=== PATIENT | female | born 1970 | race Caucasian/White ===

== ENCOUNTER 2017-01-14 12:55 | Emergency (ER) | payer MEDICAID ==
[~2017-01-14] VITALS: Ht 157.5 cm; Wt 90.0 kg
[~2017-01-14 12:55] MED LIST: CEPH-443 PO; FAMO-18 PO; HYDR-3498 PO
[2017-01-14 12:58] VITALS: Ht 157.5 cm; Wt 90.0 kg
[2017-01-14] MEDS ORDERED: DICLOFENAC SODIUM 37.5 MG/ML VIAL IV STA (13:12)
[2017-01-14] MEDS ORDERED: ONDANSETRON 4 MG INJ IV STA (13:12)
[2017-01-14 13:54] LABS: ADD UMIC YES; URINE BILIRUBIN (Dip) NEGATIVE (NEGATIVE); URINE BLOOD (Dip) TRACE (NEGATIVE); URINE COLOR LT. YELLOW (YELLOW); URINE GLUCOSE (Dip) NEGATIVE (NEGATIVE); URINE KETONES (Dip) NEGATIVE (NEGATIVE); URINE LEUKOCYTE ESTERASE (Dip) NEGATIVE (NEGATIVE); URINE NITRITE (Dip) NEGATIVE (NEGATIVE); URINE TOTAL PROTEIN (Dip) NEGATIVE (NEGATIVE); URINE UROBILINOGEN (Dip) 0.2 E.U./dL (0.1-1.0)
[2017-01-14] MEDS ORDERED: ONDANSETRON (ODT) 4 MG TAB ODT STA (13:54)
[2017-01-14] MEDS ORDERED: LIDOCAINE/MYLANTA 40 ML BTL PO ONE (14:00)
[2017-01-14 14:16] LABS: BACTERIA,URINE FEW
[2017-01-14 14:34] LABS: ADD SCAN DIFF NO
[2017-01-14 14:38] LABS: BASOPHILS % 0.4 % (0.0-2.0); EOSINOPHILS # 0.2 10^3/ul (0.0-0.5); EOSINOPHILS % 2.4 % (0.0-7.0); HEMATOCRIT 39.5 % (37.0-47.0); HEMOGLOBIN 12.9 g/dl (12.0-16.0); LYMPHOCYTES % 27.1 % (15.0-51.0); MEAN CORPUSCULAR HEMOGLOBIN 30.5 pg (29.0-33.0); MEAN CORPUSCULAR HGB CONC 32.7 g/dl (32.0-37.0); MEAN CORPUSCULAR VOLUME 93.4 fl (82.0-101.0); MONOCYTE # 0.5 10^3/ul (0.3-0.9); MONOCYTES % 6.7 % (0.0-11.0); NEUTROPHIL # 4.6 10^3/ul (1.6-7.5); RED BLOOD COUNT 4.23 10^6/ul (4.20-5.40); RED CELL DISTRIBUTION WIDTH 13.2 % (11.5-14.5); WHITE BLOOD COUNT 7.4 10^3/ul (4.8-10.8)
[2017-01-14 14:44] LABS: MEAN PLATELET VOLUME 10.4 fl (7.4-10.4)
[2017-01-14 14:54] LABS: ALBUMIN 4.1 g/dl (3.3-4.9)
[2017-01-14 14:55] LABS: POTASSIUM 4.1 mmol/L (3.5-5.1)
[2017-01-14 14:57] LABS: ALBUMIN/GLOBULIN RATIO 1.2; BILIRUBIN,INDIRECT 0.2 mg/dl (0-1.1); BILIRUBIN,TOTAL 0.2 mg/dl (0.2-1.3); CREATININE 0.51 mg/dl (0.44-1.00); PLATELET COUNT 275 10^3/UL (140-415); TOTAL PROTEIN 7.5 g/dl (6.1-8.1)
[2017-01-14 14:58] LABS: CALCIUM 9.3 mg/dl (8.4-10.2)
[2017-01-14] MEDS ORDERED: FAMO-18 PO (15:12)
[2017-01-14] MEDS ORDERED: ONDA8TAB14 PO (15:12)
[2017-01-14] MEDS ORDERED: ACET1TAB40 PO (15:13)
--- NOTE | 2017-02-11 10:15 | ERD ---
ER Documentation Chief Complaint Date/Time DATE of dictation: 02/11/17 TIME: 10:13 Date of service 01/14/2017 Chief Complaint AP WITH NAUSEA SINCE TUESDAY HPI 46-year-old female presents with epigastric abdominal pain and nausea last few days. She denies fevers, lower abdominal pain, urinary complaints, cough, shortness breath or chest pain. ROS All systems reviewed and are negative except as per history of present illness. Medications Home Meds Active Scripts Acetaminophen with Codeine (Acetaminophen-Cod #3 Tablet) 1 Each Tablet, 1 TAB PO Q6H Y for PAIN, #15 TAB Prov:TYREL SMITH MD 01/14/17 Famotidine* (Pepcid*) 20 Mg Tablet, 20 MG PO BID for 4 Days, #30 TAB Prov:TYREL SMITH MD 01/14/17 Ondansetron (Ondansetron Odt) 8 Mg Tab.rapdis, 8 MG PO Q6H Y for NAUSEA AND/OR VOMITING, #10 TAB Prov:TYREL SMITH MD 01/14/17 Famotidine* (Pepcid*) 20 Mg Tablet, 20 MG PO BID, #30 TAB Prov:MITCHELL YANES PA-C 05/24/16 Cephalexin* (Keflex*) 500 Mg Capsule, 500 MG PO TID for 3 Days, CAP Prov:ALAINA CHAVEZ MD 03/23/16 Hydrocodone Bit-Acetaminophen* (Donalds*) 5-325 Mg Tab, 1 TAB PO Q6 Y for PAIN, # 7 TAB Prov:NELY MORA PA-C 03/18/16 Allergies Allergies: Coded Allergies: No Known Allergy (Unverified , 05/24/16) PMhx/Soc History of Surgery: Yes (colostomy, and reversed colostomy & tracheostomy, , doron) Anesthesia Reaction: No Hx Neurological Disorder: No Hx Respiratory Disorders: No Hx Cardiac Disorders: No Hx Psychiatric Problems: No Hx Miscellaneous Medical Probl: No Hx Alcohol Use: Yes (6 BEERS 3X/WEEKEND) Hx Substance Use: No Hx Tobacco Use: Yes (6CIGS/DAY) Smoking Status: Current every day smoker Physical Exam Physical Exam Const: [] Alert, [id number]. Head: Atraumatic Eyes: Normal Conjunctiva ENT: Normal External Ears, Nose and Mouth. Neck: Full range of motion..~ No meningismus. Resp: Clear to auscultation bilaterally Cardio: Regular rate and rhythm, no murmurs Abd: Soft, minimal left sided tenderness. No Taylor sign and no tenderness at McBurney's point. No rebound., non distended. Normal bowel sounds Skin: No petechiae or rashes Back: No midline or flank tenderness Ext: No cyanosis, or edema Neur: Awake and alert Psych: Normal Mood and Affect Results 24 hrs Laboratory Tests Test 01/14/17 13:30 01/14/17 14:30 Urine Color LT. YELLOW Urine Clarity CLEAR Urine pH 5.5 Urine Specific Valentine 1.025 Urine Ketones NEGATIVE Urine Nitrite NEGATIVE Urine Bilirubin NEGATIVE Urine Urobilinogen 0.2 E.U./dL Urine Leukocyte Esterase NEGATIVE Urine Microscopic RBC 2-5/HPF Urine Microscopic WBC 2-5/HPF Urine Epithelial Cells FEW Urine Bacteria FEW Urine Hemoglobin TRACE Urine Glucose NEGATIVE% Urine Total Protein NEGATIVE White Blood Count 7.410^3/ul Red Blood Count 4.2310^6/ul Hemoglobin 12.9g/dl Hematocrit 39.5% Mean Corpuscular Volume 93.4fl Mean Corpuscular Hemoglobin 30.5pg Mean Corpuscular Hemoglobin Concent 32.7g/dl Red Cell Distribution Width 13.2% Platelet Count 53407^3/UL Mean Platelet Volume 10.4fl Neutrophils % 63.0% Lymphocytes % 27.1% Monocytes % 6.7% Eosinophils % 2.4% Basophils % 0.4% Nucleated Red Blood Cells % 0.0/100WBC Neutrophils # 4.610^3/ul Lymphocytes # 2.010^3/ul Monocytes # 0.510^3/ul Eosinophils # 0.210^3/ul Basophils # 0.010^3/ul Nucleated Red Blood Cells # 0.010^3/ul Sodium Level 138mmol/L Potassium Level 4.1mmol/L Chloride Level 106mmol/L Carbon Dioxide Level 21mmol/L Anion Gap 15 Blood Urea Nitrogen 9mg/dl Creatinine 0.51mg/dl Glucose Level 94mg/dl Calcium Level 9.3mg/dl Total Bilirubin 0.2mg/dl Direct Bilirubin 0.00mg/dl Indirect Bilirubin 0.2mg/dl Aspartate Amino Transf (AST/SGOT) 19IU/L Alanine Aminotransferase (ALT/SGPT) 28IU/L Alkaline Phosphatase 70IU/L Total Protein 7.5g/dl Albumin 4.1g/dl Globulin 3.40g/dl Albumin/Globulin Ratio 1.20 Lipase 79U/L Current Medications Medications (Trade) Dose Ordered Sig/Alex Route PRN Reason Start Time Stop Time Status Last Admin Dose Admin Ondansetron HCl (Zofran Inj) 4 mg ONCE STAT IV 01/14/17 13:12 01/14/17 13:14 DC Diclofenac Sodium (Dyloject) 37.5 mg ONCE STAT IV 01/14/17 13:12 01/14/17 13:51 DC Miscellaneous Medication (Gi Cocktail (2)) 40 ml ONCE ONCE PO 01/14/17 14:00 01/14/17 14:01 DC 01/14/17 13:55 Ondansetron HCl (Zofran Odt) 8 mg ONCE STAT ODT 01/14/17 13:54 01/14/17 13:55 DC 01/14/17 13:58 Procedures/MDM CBC and CMP and lipase normal. Urine negative for infection. HCG is negative. Patient presents with nausea and epigastric pain suspicious for gastritis or possible viral gastroenteritis. She will be treated with Pepcid, Zofran, 3 and observation at home. The patient was stable with no new complaints during the ER course. Clinically, there is no current evidence to suggest meningitis, sepsis, acute abdomen, pneumonia, acute coronary syndrome, pulmonary embolism, or any other emergent condition appearing to require further evaluation or hospitalization. The patient should certainly return for any new or worsening symptoms per the aftercare instructions. They should otherwise follow-up with her primary care doctor for reevaluation this week. Departure Diagnosis: Primary Impression: Abdominal pain Abdominal location: left upper quadrant Qualified Code: R10.12 - Left upper quadrant pain Additional Impression: Abdominal cramps Condition: Stable Patient Instructions: Abdominal Pain, Vomiting And Diarrhea, Nonspecific (Adult ) Additional Instructions: Examines normal hoy. Cheque otro vez con dhillon doctor primario en el proximo zapata or regresa para mas o nueva simptomas. probablamente un virus que dura 2-4 zapata. cheque otro josh el proximo kurt para mas simptomas- vomito, dolor, kassie, problemas con respirando, o con dhillon doctor primario. TYREL SMITH MD Feb 11, 2017 10:15
== END 2017-01-14 15:26 | disposition home or self-care (01) ==
LOC: FTE 12:55
DX: R10.12 Left upper quadrant pain (principal); F17.210 Nicotine dependence, cigarettes, uncomplicated; R11.0 Nausea
CPT/HCPCS: 80053; 81001; 83690; 85025; Z7610; 81003; 99283